=== PATIENT | female | born 1985 | race Hispanic/Latino ===

== ENCOUNTER 2018-11-02 08:52 | Day surgery (SDC) | payer OTHER ==
[~2018-11-02] VITALS: Ht 157.5 cm; Wt 72.6 kg
[~2018-11-02 08:52] MED LIST: SODIUM CHLORIDE 0.9% 1000ML 1,000 ML IV ONE; VITAMIN B12 PO
[2018-11-02 11:06] VITALS: BP 113/66
[2018-11-02] MEDS ORDERED: VITAMIN C (11:17)
[2018-11-02] MEDS ORDERED: PROPOFOL 10 MG/ML 20ML VIAL IV ONE (11:36)
[2018-11-02 11:40] VITALS: BP 102/63
[2018-11-02 11:45] VITALS: BP 113/63
[2018-11-02 11:50] VITALS: BP 110/68
[2018-11-02 11:55] VITALS: BP 116/78
[2018-11-02 12:00] VITALS: BP 114/74
== END 2018-11-02 12:10 | disposition home or self-care (01) ==
LOC: ENDO 08:52 → DAH 08:52 → ENDO 12:10
PROVIDERS: ATTEND Internal Medicine
DX: R10.13 Epigastric pain (principal); K29.70 Gastritis, unspecified, without bleeding; B96.81 Helicobacter pylori [H. pylori] as the cause of diseases classified elsewhere; K22.8 Other specified diseases of esophagus; N20.0 Calculus of kidney; R19.7 Diarrhea, unspecified; K76.0 Fatty (change of) liver, not elsewhere classified; G43.909 Migraine, unspecified, not intractable, without status migrainosus; Z80.0 Family history of malignant neoplasm of digestive organs
CPT/HCPCS: 43239; A4215; A4221; A4222; A4223; A4606; A4663; J2704; J7030

== ENCOUNTER 2019-04-01 15:58 | Emergency (ER) | payer OTHER ==
[~2019-04-01 15:58] MED LIST changes: -SODIUM CHLORIDE 0.9% 1000ML 1,000 ML IV ONE; +VITAMIN C
[2019-04-01] MEDS ORDERED: KETOROLAC TROMETHAMINE 60 MG/2 ML VIAL ONE (16:26)
[2019-04-01] MEDS ORDERED: DIAZEPAM 5 MG TABLET ONE (16:27)
== END 2019-04-01 17:03 | disposition home or self-care (01) ==
LOC: EDH 15:58
DX: S16.1XXA Strain of muscle, fascia and tendon at neck level, initial encounter (principal); G44.209 Tension-type headache, unspecified, not intractable; Z98.890 Other specified postprocedural states; V59.9XXA Occupant (driver) (passenger) of pick-up truck or van injured in unspecified traffic accident, initial encounter; Y93.89 Activity, other specified; Y92.488 Other paved roadways as the place of occurrence of the external cause; Y99.8 Other external cause status
CPT/HCPCS: 96372; 99283; J1885

== ENCOUNTER → 2019-04-04 | Outpatient (CLI) | payer OTHER | END | disposition home or self-care (01) | LOC: RAH 15:49 | PROVIDERS: ATTEND Internal Medicine Critical Care Medicine | DX: M54.5 Low back pain (principal) | CPT/HCPCS: 72040; 72100 ==

== ENCOUNTER → 2019-06-29 | Outpatient (CLI) | payer OTHER | END | disposition home or self-care (01) | LOC: RAH 10:09 | PROVIDERS: ATTEND Obstetrics & Gynecology | DX: N60.02 Solitary cyst of left breast (principal); N60.01 Solitary cyst of right breast; N63.12 Unspecified lump in the right breast, upper inner quadrant | CPT/HCPCS: 76641 ==

== ENCOUNTER → 2019-08-23 | Outpatient (CLI) | payer OTHER | END | disposition home or self-care (01) | LOC: LAB 09:35 | PROVIDERS: ATTEND Internal Medicine Critical Care Medicine | DX: U07.1 COVID-19 (principal) | CPT/HCPCS: 36415; U0003 ==

== ENCOUNTER 2019-11-06 22:37 | Observation (INO) | payer OTHER ==
[~2019-11-06] VITALS: Ht 157.5 cm; Wt 80.8 kg
[2019-11-06] MEDS ORDERED: ONDANSETRON HCL 4 MG/2 ML VIAL ONE (22:54)
[2019-11-06 23:10] LABS: BASOPHILS % (AUTO) 0.5 % (0.0-5.0); EOSINOPHILS % (AUTO) 0.5 % (0.0-8.0); HEMATOCRIT 37.7 % (36-48); LYMPHOCYTES % (AUTO) 14.4 % (21.0-51.0); MEAN CORPUSCULAR HEMOGLOBIN 27.2 pg (27.0-33.0); MEAN CORPUSCULAR HGB CONC 33.4 g/dL (32.0-36.0); MEAN CORPUSCULAR VOLUME 81.4 fL (79-99); MONOCYTES % (AUTO) 4.3 % (3.0-13.0); NEUTROPHILS % (AUTO) 79.9 % (40.0-77.0); PLATELET COUNT (AUTO) 402 K/uL (130-400); RED BLOOD CELL COUNT(AUTO) 4.63 MIL/uL (4.00-5.50); RED CELL DISTRIBUTION WIDTH 13.6 % (11.0-15.5); WHITE BLOOD COUNT (AUTO) 15.5 K/uL (4.8-10.8)
[2019-11-06 23:15] LABS: APPEARANCE,URINE Clear (CLEAR); BILIRUBIN,URINE Negative (NEGATIVE); COLOR,URINE Yellow (YELLOW); GLUCOSE, URINE (UA) Negative (NEGATIVE); KETONES,URINE Negative (NEGATIVE); LEUKOCYTE ESTERASE ,URINE Trace (NEGATIVE); NITRATE,URINE Negative (NEGATIVE); OCCULT BLOOD,URINE Moderate (NEGATIVE); PH,URINE 6.5 (5.0-8.0); PROTEIN,URINE Trace mg/dL (NEGATIVE)
[2019-11-06] MEDS ORDERED: MORPHINE SULFATE 4 MG/1ML SYG ONE (23:17)
[2019-11-06] MEDS ORDERED: DIATR MEGLU/DIATRIZOATE SODIUM 30 ML BOTTLE ONE (23:20)
[2019-11-06 23:21] LABS: HCG,QUAL RESULT NEGATIVE (NEGATIVE)
[2019-11-06 23:26] LABS: BACTERIA,URINE Few /HPF (None Seen); WBC,URINE 0-1 /HPF (0-1)
[2019-11-06 23:27] LABS: BILIRUBIN,TOTAL 0.5 mg/dL (0.2-1.0); CREATININE 1.1 mg/dL (0.5-1.5); TOTAL PROTEIN, SERUM 8.3 g/dL (6.0-8.3)
[2019-11-06 23:32] LABS: POTASSIUM 2.9 mmol/L (3.5-5.1)
[2019-11-07] MEDS ORDERED: IOHEXOL-350 75 ML VIAL IV ONE (01:56)
[2019-11-07] MEDS ORDERED: POTASSIUM BICARB/CIT AC 25 MEQ TABLET.EFF ONE (03:02)
[2019-11-07] MEDS ORDERED: KETOROLAC TROMETHAMINE 30MG/ML ONE (03:17)
[2019-11-07] MEDS ORDERED: ZOLPIDEM TARTRATE 5 MG TAB PO PRN (04:00)
[2019-11-07] MEDS ORDERED: MORPHINE SULFATE 4 MG/1ML SYG IV PRN (04:00)
[2019-11-07] MEDS: SODIUM CHLORIDE 0.9% 1000ML 1,000 ML IV SCH ×2 (04:00→17:54)
[2019-11-07] MEDS ORDERED: ONDANSETRON HCL 4 MG/2 ML VIAL IV PRN (04:00)
[2019-11-07] MEDS ORDERED: LACTULOSE 20 GM/30 ML UDCUP PO PRN (04:00)
[2019-11-07] MEDS ORDERED: ACETAMINOPHEN 325 MG TAB PO PRN (04:00)
--- NOTE | 2019-11-07 04:38 | NUR ---
ER REPORT NATHALIE FROM er gave report,pt had a K+ 2.9.she had given her kcl 25 meq in er.
[2019-11-07] MEDS ORDERED: POTASSIUM CHLORIDE 10MEQ/100ML 100 ML IV ONE (04:42)
[2019-11-07 05:00] VITALS: BP 138/65
[2019-11-07] MEDS ORDERED: DICY20TA11 PO (05:18)
[2019-11-07] MEDS ORDERED: BIOT5000 PO (05:18)
[2019-11-07] MEDS: CEFTRIAXONE SODIUM 1 GM IV SCH (05:30)
--- NOTE | 2019-11-07 07:57 | NUR ---
Dr. Fairbanks Spoke to MD via telephone regarding consult
[2019-11-07 08:06] VITALS: BP 117/78
[2019-11-07] MEDS: LIDOCAINE HCL-MPF 1% 2ML VIAL IV PRN ×2 (08:52→19:49)
[2019-11-07] MEDS: POTASSIUM CHLORIDE 10MEQ/100ML 100 ML IV PRN ×2 (08:56→19:49)
[2019-11-07] MEDS ORDERED: FAMOTIDINE/PF 20 MG/2 ML VIAL IV SCH (09:00)
[2019-11-07] MEDS ORDERED: FLU VACC QS2020-21(6MOS UP)/PF 60 MCG/0.5 ML ML IM ONE (09:00)
--- NOTE | 2019-11-07 09:05 | NUR ---
PAGED HOSPITALIST PATIENT REPORTS PAIN 7/10 ABDOMINAL PAIN. PATIENT STATES MORPHINE PRN DOES NOT WORK TO CONTROL PAIN. PAGED MD TO REPORTS PAIN REPORT AND MG LEVEL 1.8
[2019-11-07] MEDS: KETOROLAC TROMETHAMINE 15MG/ML IV PRN ×2 (09:41→19:49)
[2019-11-07] MEDS: MAGNESIUM 2GM PREMIX 50ML 50 ML IV SCH (09:45)
[2019-11-07] MEDS: PANTOPRAZOLE 40 MG/VIAL IVP SCH (10:31)
[2019-11-07 11:19] VITALS: BP 123/69
--- NOTE | 2019-11-07 12:28 | NUR ---
DCP CM met with pt discussed dc plans. Pt is independent prior to admission, lives at home with spouse and children 15, 13, 10, 8, 6 y/o. 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 Denies any other equipments/services. Feels safe to go back home, still drives and works, spouse able to assist with transportation and needs as necessary. DC plan to home once stable. CM to continue to follow up. Addendum: 11/07/19 at 1231 by ONEAL ROBB LVN CM Amended: Links added.
--- NOTE | 2019-11-07 16:08 | NUR ---
RD NOTE PT WAS SEEN 11/07/19. DX OF CHRONIC ABDOMINAL PAIN PT REPORTED NO NAUSEA/VOMITING AND NO RECENT UNINTENTIONAL WT LOSS. PT REPORTED HAVING GESTATIONAL DM HOWEVER IT HAS SINCE RESOLVED. PT TAKES VITAMIN C, VITAMIN B12 AND BIOTIN AT HOME. PT IS CURRENTLY NPO AWAITING FURTHER EVALUATION FROM GI. ADVANCE DIET PER GI RECOMMENDATIONS UPON EVALUATION. RD WILL CONTINUE TO MONITOR PO STATUS AND LAB VALUES. PT'S BMI IS OF 32.6 LAST BOWEL MOVEMENT WAS 11/07/19, RECENT LAB VALUES ARE: K 3.4 (L), CL 98 (L), TOT CA 7.8 (L), LIPASE 50 (L), NA 132 (L), ALB 4.0. Addendum: 11/07/19 at [address] Amended: Links added.
[2019-11-07 16:42] VITALS: BP 132/61
--- NOTE | 2019-11-07 19:00 | NUR ---
RE FLU VACCINE Pt states she wants her flus vaccine given when she's ready to go home.
[2019-11-07] MEDS: COLCHICINE 0.6 MG TABLET PO SCH (19:48)
[2019-11-07 20:00] VITALS: BP 125/78
[2019-11-07] MEDS ORDERED: HYDROMORPHONE HCL 0.5 MG/0.5 ML ML ONE (21:44)
[2019-11-07] MEDS ORDERED: HYDROMORPHONE HCL 0.5 MG/0.5 ML ML IVP SCH (22:00)
--- NOTE | 2019-11-07 22:32 | NUR ---
MIGRAINE Pt c/o of severe migraine headache and states she takes migraine medicine at home.She states Toradol and Morphine does not help with her migraine.Paged [facility]fon[facility] [employer] and obtained order for Dilaudid one time dose.Pt took a shower and medicated with Dilaudid for headache.
--- NOTE | 2019-11-07 23:15 | NUR ---
MED EFFECT Pt calm,awake in bed.Verbalized relief of pain.
[2019-11-07 23:24] VITALS: BP 133/80
[2019-11-08] VITALS (20 sets, daily range): BP systolic 107–132; BP diastolic 55–87
[2019-11-08] MEDS: SODIUM CHLORIDE 0.9% 1000ML 1,000 ML IV SCH ×3 (00:24→20:00)
--- NOTE | 2019-11-08 01:35 | NUR ---
NPO Pts npo for egd this am.
[2019-11-08] MEDS: CEFTRIAXONE SODIUM 1 GM IV SCH (03:59)
[2019-11-08] MEDS: KETOROLAC TROMETHAMINE 15MG/ML IV PRN ×2 (04:05→14:55)
[2019-11-08 06:03] LABS: BASOPHILS % (AUTO) 0.8 % (0.0-5.0); EOSINOPHILS % (AUTO) 4.7 % (0.0-8.0); HEMATOCRIT 33.9 % (36-48); LYMPHOCYTES % (AUTO) 32.9 % (21.0-51.0); MEAN CORPUSCULAR HEMOGLOBIN 26.9 pg (27.0-33.0); MEAN CORPUSCULAR HGB CONC 32.4 g/dL (32.0-36.0); MEAN CORPUSCULAR VOLUME 82.9 fL (79-99); MONOCYTES % (AUTO) 6.7 % (3.0-13.0); NEUTROPHILS % (AUTO) 54.7 % (40.0-77.0); PLATELET COUNT (AUTO) 338 K/uL (130-400); RED BLOOD CELL COUNT(AUTO) 4.09 MIL/uL (4.00-5.50); RED CELL DISTRIBUTION WIDTH 13.5 % (11.0-15.5); WHITE BLOOD COUNT (AUTO) 6.6 K/uL (4.8-10.8)
[2019-11-08 06:09] LABS: INR 0.97 (0.85-1.15); PARTIAL THROMBOPLASTIN TIME 26.5 SEC (26.3-35.5); PROTHROMBIN TIME 10.5 SEC (9.6-11.6)
[2019-11-08 06:13] LABS: AMYLASE 17 U/L (25-115); CARBON DIOXIDE 26 mmol/L (21-32); CHLORIDE 107 mmol/L (101-111); CREATININE 0.9 mg/dL (0.5-1.5); GLOMERULAR FILTR. RATE CALC 76 mL/min (>60); GLUCOSE,RANDOM 85 mg/dL (70-105); POTASSIUM 3.7 mmol/L (3.5-5.1); SODIUM SERUM 138 mmol/L (136-145); UREA NITROGEN, BLOOD 7 mg/dL (7-18)
[2019-11-08 06:22] LABS: LIPASE < 50 U/L (114-286)
[2019-11-08] MEDS: MAGNESIUM 2GM PREMIX 50ML 50 ML IV SCH (06:28)
[2019-11-08 07:07] LABS: ERYTHROCYTE SEDIMENTATION RATE 20 MM/HR (0-20)
[2019-11-08] MEDS: COLCHICINE 0.6 MG TABLET PO SCH ×3 (09:00→19:50)
[2019-11-08] MEDS: PANTOPRAZOLE 40 MG/VIAL IVP SCH (09:11)
[2019-11-08] MEDS ORDERED: MIDAZOLAM HCL 1 MG/ML 2ML VIAL ONE (10:49)
[2019-11-08] MEDS ORDERED: PROPOFOL 10 MG/ML 20ML VIAL IV ONE (10:49)
[2019-11-08] MEDS ORDERED: COLC0.6T73 PO (13:38)
[2019-11-08] MEDS ORDERED: PANT40TA55 PO (13:38)
--- NOTE | 2019-11-08 14:45 | NUR ---
PATIENT SYMPTOMS PATIENT REPORTS ABDOMINAL PAIN 7/10 AND NAUSEA THAT STARTED NOW. PATIENT REPORTS EATING LUNCH AND SPORTS DRINKS. PATIENT STATES THAT SHE FEELS "WARM AND NOT GOOD AT ALL." INFORMED DR. SHARMA OF PATIENT SYMPTOMS AND MD OKAYED TO HOLD DISCHARGE UNTIL SYMPTOM RELIEF.
[2019-11-08] MEDS ORDERED: SUMA25TA9 PO (15:29)
[2019-11-08] MEDS: SUMATRIPTAN SUCCINATE 25 MG TABLET PO PRN (16:37)
--- NOTE | 2019-11-08 20:00 | NUR ---
RECEIVED Pt resting in bed,states she's not ready to leave yet becaused she felt nauseated after she ate chicken from outside,Denies pain this time.
--- NOTE | 2019-11-08 23:22 | NUR ---
AWAKE Pt awake in bed,calm,states she's not ready to leave yet.
[2019-11-09 03:30] VITALS: BP_SYST 103; BP_SYST 124; BP_DIAS 50; BP_DIAS 60
[2019-11-09] MEDS: CEFTRIAXONE SODIUM 1 GM IV SCH (04:06)
[2019-11-09] MEDS: SUMATRIPTAN SUCCINATE 25 MG TABLET PO PRN (04:11)
[2019-11-09] MEDS: SODIUM CHLORIDE 0.9% 1000ML 1,000 ML IV SCH (05:49)
[2019-11-09 08:04] VITALS: BP 126/71
[2019-11-09] MEDS ORDERED: FLU VACC QS2020-21(6MOS UP)/PF 60 MCG/0.5 ML ML IM ONE (09:00)
[2019-11-09] MEDS: PANTOPRAZOLE 40 MG/VIAL IVP SCH (09:53)
[2019-11-09] MEDS: COLCHICINE 0.6 MG TABLET PO SCH (09:53)
== END 2019-11-09 11:00 | disposition home or self-care (01) ==
LOC: EDH 22:37 → EDHIP 11-07 03:47 → 3AH 11-07 04:52
PROVIDERS: ADMIT Internal Medicine; ATTEND Internal Medicine
DX: R10.13 Epigastric pain (principal); E87.6 Hypokalemia; R11.2 Nausea with vomiting, unspecified; K29.70 Gastritis, unspecified, without bleeding; G89.29 Other chronic pain; N39.0 Urinary tract infection, site not specified; D72.829 Elevated white blood cell count, unspecified; A04.8 Other specified bacterial intestinal infections; M54.9 Dorsalgia, unspecified; Z23 Encounter for immunization; Z98.51 Tubal ligation status; Z79.899 Other long term (current) drug therapy; Z91.048 Other nonmedicinal substance allergy status
CPT/HCPCS: 36415 ×3; 43239; 74177; 80048; 80053; 81001; 81025; 82150; 83690 ×2; 83735 ×2; 84132; 84145 ×2; 85025 ×2; 85384 ×2; 85610; 85651 ×2; 85730; 86140 ×2; 86677; 87088; 90471; 93005; 96361 ×2; 96365; 96366; 96367; 96375 ×2; 96376 ×3; 99285; A4606; A4620; A4657; C9113 ×3; G0378 ×22; J0696 ×2; J1170; J1885 ×5; J2250; J2270 ×2; J2405 ×2; J2704; J3475 ×2; J3490 ×2; J7030 ×2; Q2035; Q9963; Q9967

== ENCOUNTER → 2019-11-24 | Outpatient (CLI) | payer OTHER ==
[~2019-11-24] MED LIST changes: +BIOT5000 PO; +COLC0.6T70 PO; +DICY20TA11 PO; +PANT40TA55 PO; +SUMA25TA9 PO; -VITAMIN B12 PO
== END | disposition home or self-care (01) ==
LOC: LAB 09:44
PROVIDERS: ATTEND Internal Medicine Gastroenterology
DX: R10.9 Unspecified abdominal pain (principal)
CPT/HCPCS: 36415; 82784; 83516; 86038; 86215; 86235

== ENCOUNTER 2019-12-15 20:53 | Inpatient (IN) | payer OTHER ==
[~2019-12-15] VITALS: Ht 157.5 cm; Wt 78.9 kg
[~2019-12-15 20:53] MED LIST changes: -COLC0.6T70 PO; +COLC0.6T73 PO
[2019-12-15] MEDS ORDERED: SODIUM CHLORIDE 0.9% 500ML 500 ML IV ONE (21:22)
[2019-12-15] MEDS ORDERED: SODIUM CHLORIDE 0.9% 1000ML 2,000 ML IV ONE (21:22)
[2019-12-15 21:31] LABS: BASOPHILS % (AUTO) 0.4 % (0.0-5.0); EOSINOPHILS % (AUTO) 1.5 % (0.0-8.0); HEMATOCRIT 37.2 % (36-48); LYMPHOCYTES % (AUTO) 14.5 % (21.0-51.0); MEAN CORPUSCULAR HEMOGLOBIN 26.8 pg (27.0-33.0); MEAN CORPUSCULAR HGB CONC 33.3 g/dL (32.0-36.0); MEAN CORPUSCULAR VOLUME 80.5 fL (79-99); MONOCYTES % (AUTO) 4.9 % (3.0-13.0); NEUTROPHILS % (AUTO) 78.4 % (40.0-77.0); PLATELET COUNT (AUTO) 371 K/uL (130-400); RED BLOOD CELL COUNT(AUTO) 4.62 MIL/uL (4.00-5.50); WHITE BLOOD COUNT (AUTO) 14.4 K/uL (4.8-10.8)
[2019-12-15] MEDS ORDERED: ACETAMINOPHEN 325 MG TAB ONE (21:32)
[2019-12-15 21:45] LABS: APPEARANCE,URINE Clear (CLEAR); BILIRUBIN,URINE Negative (NEGATIVE); COLOR,URINE Yellow (YELLOW); GLUCOSE, URINE (UA) Negative (NEGATIVE); KETONES,URINE Negative (NEGATIVE); LEUKOCYTE ESTERASE ,URINE Negative (NEGATIVE); NITRATE,URINE Negative (NEGATIVE); OCCULT BLOOD,URINE Small (NEGATIVE); PROTEIN,URINE Negative (NEGATIVE); UROBILINOGEN,URINE 0.2 mg/dL (0.2-1.0)
[2019-12-15 21:47] LABS: HCG,QUAL RESULT NEGATIVE (NEGATIVE)
[2019-12-15 21:51] LABS: CARBON DIOXIDE 23 mmol/L (21-32); CHLORIDE 100 mmol/L (101-111); GLOMERULAR FILTR. RATE CALC 67 mL/min (>60); GLUCOSE,RANDOM 109 mg/dL (70-105); POTASSIUM 3.2 mmol/L (3.5-5.1); SODIUM SERUM 135 mmol/L (136-145); UREA NITROGEN, BLOOD 8 mg/dL (7-18)
[2019-12-15 21:54] LABS: BACTERIA,URINE Few /HPF (None Seen); MUCUS,URINE Few LPF (None Seen); SQUAMOUS EPITHELIAL CELL,UR Moderate /HPF (0-2); WBC,URINE 0-1 /HPF (0-1)
[2019-12-15 21:55] LABS: ALANINE AMINOTRANSFERASE 65 U/L (12-78); ALBUMIN 3.8 g/dL (3.5-5.0); ASPARTATE AMINOTRANSFERASE 43 U/L (10-37); BILIRUBIN,TOTAL 0.4 mg/dL (0.2-1.0); TOTAL PROTEIN, SERUM 8.2 g/dL (6.0-8.3)
[2019-12-15 21:58] LABS: LIPASE < 50 U/L (114-286)
[2019-12-15 22:00] LABS: RAPID GROUP A STREP NEGATIVE (NEGATIVE)
[2019-12-15 22:13] LABS: AMPHET/METH SCREEN,URINE NEGATIVE (NEGATIVE); BARBITURATE SCREEN, URINE NEGATIVE (NEGATIVE); BENZODIAZEPINES SCREEN,URINE NEGATIVE (NEGATIVE); CANNABINOID SCREEN,URINE NEGATIVE (NEGATIVE); COCAINE SCREEN,URINE NEGATIVE (NEGATIVE); OPIATE SCREEN,URINE NEGATIVE (NEGATIVE); PHENCYCLIDINE SCREEN,URINE NEGATIVE (NEGATIVE)
[2019-12-15] MEDS ORDERED: KETOROLAC TROMETHAMINE 30MG/ML ONE (22:37)
[2019-12-15] MEDS ORDERED: POTASSIUM BICARB/CIT AC 25 MEQ TABLET.EFF ONE (22:37)
[2019-12-15] MEDS ORDERED: ONDANSETRON HCL 4 MG/2 ML VIAL ONE (23:44)
[2019-12-15] MEDS ORDERED: MORPHINE SULFATE 4 MG/1ML SYG ONE (23:44)
[2019-12-16] MEDS ORDERED: LACTULOSE 20 GM/30 ML UDCUP PO PRN (05:30)
[2019-12-16] MEDS ORDERED: ACETAMINOPHEN 325 MG TAB PO PRN ×2 (05:30)
[2019-12-16] MEDS: CEFTRIAXONE SODIUM 1 GM IV SCH (05:30)
[2019-12-16] MEDS ORDERED: CEFTRIAXONE SODIUM 1 GM ONE (05:39)
[2019-12-16] MEDS ORDERED: METRONIDAZOLE 500MG/100ML BAG 100 ML ONE (05:39)
[2019-12-16] MEDS ORDERED: SODIUM CHLORIDE 0.9% 1000ML 1,000 ML IV SCH (05:45)
[2019-12-16] MEDS ORDERED: POTASSIUM CHLORIDE 10MEQ/100ML 100 ML IV PRN (05:45)
[2019-12-16] MEDS ORDERED: POTASSIUM CHLORIDE 20 MEQ ERTAB PO PRN (05:45)
[2019-12-16] MEDS ORDERED: POTASSIUM CHLORIDE 10% ELIXIR 20 MEQ/15 ML UDCUP PO PRN (05:45)
[2019-12-16] MEDS ORDERED: LIDOCAINE HCL-MPF 1% 2ML VIAL IV PRN (05:45)
[2019-12-16 06:05] LABS: BASOPHILS % (AUTO) 0.5 % (0.0-5.0); EOSINOPHILS % (AUTO) 2.2 % (0.0-8.0); HEMATOCRIT 34.9 % (36-48); LYMPHOCYTES % (AUTO) 24.1 % (21.0-51.0); MEAN CORPUSCULAR HEMOGLOBIN 26.6 pg (27.0-33.0); MEAN CORPUSCULAR HGB CONC 32.1 g/dL (32.0-36.0); MEAN CORPUSCULAR VOLUME 82.9 fL (79-99); MONOCYTES % (AUTO) 6.3 % (3.0-13.0); NEUTROPHILS % (AUTO) 66.6 % (40.0-77.0); PLATELET COUNT (AUTO) 310 K/uL (130-400); RED BLOOD CELL COUNT(AUTO) 4.21 MIL/uL (4.00-5.50); RED CELL DISTRIBUTION WIDTH 14.3 % (11.0-15.5); WHITE BLOOD COUNT (AUTO) 11.1 K/uL (4.8-10.8)
[2019-12-16 06:19] LABS: ALBUMIN 3.2 g/dL (3.5-5.0); BILIRUBIN,TOTAL 0.6 mg/dL (0.2-1.0); CREATININE 0.9 mg/dL (0.5-1.5); POTASSIUM 3.6 mmol/L (3.5-5.1); TOTAL PROTEIN, SERUM 6.8 g/dL (6.0-8.3)
[2019-12-16] MEDS ORDERED: MORPHINE SULFATE 4 MG/1ML SYG ONE (07:14)
[2019-12-16 07:56] VITALS: BP 123/83
[2019-12-16] MEDS: FAMOTIDINE/PF 20 MG/2 ML VIAL IV SCH ×2 (08:50→20:49)
[2019-12-16] MEDS: COLCHICINE 0.6 MG TABLET PO SCH ×2 (09:00→20:50)
[2019-12-16] MEDS: MORPHINE SULFATE 2 MG/ML 1ML SYG IV PRN (10:06)
[2019-12-16 11:13] VITALS: BP 132/81
[2019-12-16] MEDS: HYDROCODONE/ACETAMINOPHEN 5/325 MG TAB PO PRN ×2 (11:30→19:09)
[2019-12-16] MEDS: METRONIDAZOLE 500MG/100ML BAG 100 ML IV SCH ×2 (13:04→20:50)
[2019-12-16 16:40] VITALS: BP 123/82
[2019-12-16] MEDS ORDERED: DICY20 PO (16:44)
[2019-12-16] MEDS ORDERED: GABA300S PO (16:44)
[2019-12-16] MEDS ORDERED: SUMA25TA9 PO (16:44)
--- NOTE | 2019-12-16 17:00 | NUR ---
DR. ARGUELLES CALLED AND NEW ORDERS GIVEN FOR COLONOSCOPY. PATIENT SIGNED CONSENT FOR CT W/O CONTRAST OF ABDOMEN AND PELVIS AND ALSO HAD HER SIGN A CONSENT FOR COLONOSCOPY IN A.M. PATIENT WAS TAKEN TO RADIOLOGY FOR CT AFTER CONSENT OBTAINED FOR TEST.
--- NOTE | 2019-12-16 17:20 | NUR ---
COVID TEST: NASAL SWAB DONE FOR HUFF ANTIGEN AND SEND TO LAB.
[2019-12-16] MEDS ORDERED: IOHEXOL-350 75 ML VIAL IV ONE (17:30)
[2019-12-16 18:29] VITALS: BP 137/87
[2019-12-16] MEDS ORDERED: PEG 3350/NA SULF,BICARB,CL/KCL 4000 ML SOLN PO SCH (18:30)
--- NOTE | 2019-12-16 18:35 | NUR ---
hygeine: took shower.
--- NOTE | 2019-12-16 19:04 | NUR ---
PREP FOR PROCEDURE: DRINKING VALERIE.
[2019-12-16 19:06] LABS: BASOPHILS % (AUTO) 0.8 % (0.0-5.0); EOSINOPHILS % (AUTO) 3.5 % (0.0-8.0); HEMATOCRIT 37.3 % (36-48); LYMPHOCYTES % (AUTO) 31.5 % (21.0-51.0); MEAN CORPUSCULAR HEMOGLOBIN 26.8 pg (27.0-33.0); MEAN CORPUSCULAR HGB CONC 32.4 g/dL (32.0-36.0); MEAN CORPUSCULAR VOLUME 82.7 fL (79-99); MONOCYTES % (AUTO) 5.7 % (3.0-13.0); NEUTROPHILS % (AUTO) 58.4 % (40.0-77.0); PLATELET COUNT (AUTO) 387 K/uL (130-400); RED BLOOD CELL COUNT(AUTO) 4.51 MIL/uL (4.00-5.50); RED CELL DISTRIBUTION WIDTH 14.4 % (11.0-15.5); WHITE BLOOD COUNT (AUTO) 9.8 K/uL (4.8-10.8)
[2019-12-16 19:17] LABS: POTASSIUM 3.4 mmol/L (3.5-5.1)
--- NOTE | 2019-12-16 19:30 | NUR ---
BEDSIDE REPORT GIVEN TO Belia RAMOS RN AND PATIENT CARE TRANSFERED AT THIS TIME.
[2019-12-16 20:00] LABS: INR 0.91 (0.85-1.15); PROTHROMBIN TIME 9.9 SEC (9.6-11.6)
[2019-12-16] MEDS: SODIUM CHLORIDE 0.9% 1000ML 1,000 ML IV SCH (20:49)
[2019-12-16 23:07] VITALS: BP 145/92
[2019-12-17] VITALS (20 sets, daily range): BP systolic 115–133; BP diastolic 47–88
--- NOTE | 2019-12-17 00:30 | NUR ---
PT. REPORTING CLEAR STOOLS; GO-LYTELY WELL TOLERATED, NO N/V. Addendum: 12/17/19 at 0414 by IRWIN KRAUS RN RN Amended: Links added.
[2019-12-17] MEDS: HYDROCODONE/ACETAMINOPHEN 5/325 MG TAB PO PRN ×2 (01:53→20:34)
[2019-12-17] MEDS: METRONIDAZOLE 500MG/100ML BAG 100 ML IV SCH ×3 (04:31→20:32)
[2019-12-17] MEDS: SODIUM CHLORIDE 0.9% 1000ML 1,000 ML IV SCH (05:00)
[2019-12-17 05:19] LABS: BASOPHILS % (AUTO) 0.7 % (0.0-5.0); EOSINOPHILS % (AUTO) 4.5 % (0.0-8.0); HEMATOCRIT 32.7 % (36-48); LYMPHOCYTES % (AUTO) 31.7 % (21.0-51.0); MEAN CORPUSCULAR HEMOGLOBIN 26.6 pg (27.0-33.0); MEAN CORPUSCULAR HGB CONC 32.4 g/dL (32.0-36.0); MEAN CORPUSCULAR VOLUME 82.2 fL (79-99); MONOCYTES % (AUTO) 7.2 % (3.0-13.0); NEUTROPHILS % (AUTO) 55.6 % (40.0-77.0); PLATELET COUNT (AUTO) 313 K/uL (130-400); RED BLOOD CELL COUNT(AUTO) 3.98 MIL/uL (4.00-5.50); RED CELL DISTRIBUTION WIDTH 14.3 % (11.0-15.5); WHITE BLOOD COUNT (AUTO) 6.9 K/uL (4.8-10.8)
[2019-12-17 05:31] LABS: BILIRUBIN,TOTAL 0.3 mg/dL (0.2-1.0); CREATININE 0.8 mg/dL (0.5-1.5); POTASSIUM 3.7 mmol/L (3.5-5.1); TOTAL PROTEIN, SERUM 6.7 g/dL (6.0-8.3)
[2019-12-17] MEDS: CEFTRIAXONE SODIUM 1 GM IV SCH (05:33)
[2019-12-17] MEDS: FAMOTIDINE/PF 20 MG/2 ML VIAL IV SCH (08:55)
[2019-12-17] MEDS: MORPHINE SULFATE 2 MG/ML 1ML SYG IV PRN (09:02)
[2019-12-17] MEDS ORDERED: PROPOFOL 10 MG/ML 20ML VIAL IV ONE (10:23)
[2019-12-17] MEDS: COLCHICINE 0.6 MG TABLET PO SCH (11:52)
[2019-12-17] MEDS ORDERED: HYDROCODONE/ACETAMINOPHEN 5/325 MG TAB PO PRN (12:00)
[2019-12-17] MEDS: ONDANSETRON HCL 4 MG/2 ML VIAL IV PRN (14:22)
[2019-12-17] MEDS ORDERED: LEVOFLOXACIN 500 MG TABLET PO SCH (16:30)
--- NOTE | 2019-12-17 16:38 | NUR ---
DCP CM met with pt in room discussed dc plans. Pt is independent prior to admission, lives at home with spouse and 5 children(18,13,8,6 y/o). Denies any equipments/services. Feels safe to go back home, still drives and work, spouse able to assist with transportation and needs as necessary. DC plan to home once stable. CM to continue to follow up. Addendum: 12/17/19 at 1640 by ONEAL ROBB LVN CM Amended: Links added.
[2019-12-17] MEDS ORDERED: SODIUM CHLORIDE 0.9% 1000ML 1,000 ML IV SCH (17:00)
[2019-12-17] MEDS ORDERED: KETOROLAC TROMETHAMINE 15MG/ML IV PRN (17:00)
--- NOTE | 2019-12-17 20:00 | NUR ---
IV TO LAC TENDER AND SLIGHTLY RED, DISCONTINUED. IV CATHETER INTACT, SITE REMAIN SLIGHTLY REDDISH.
--- NOTE | 2019-12-17 20:15 | NUR ---
IV TO LFA STARTED BY Randy PRITCHETT RN, SITE WNL.
[2019-12-17] MEDS: PANTOPRAZOLE SODIUM 40 MG TABLET.DR PO SCH (20:33)
[2019-12-18 03:12] VITALS: BP 115/67
[2019-12-18] MEDS: METRONIDAZOLE 500MG/100ML BAG 100 ML IV SCH ×2 (04:30→12:54)
[2019-12-18 05:20] LABS: BASOPHILS % (AUTO) 0.8 % (0.0-5.0); EOSINOPHILS % (AUTO) 3.7 % (0.0-8.0); HEMATOCRIT 33.2 % (36-48); LYMPHOCYTES % (AUTO) 34.5 % (21.0-51.0); MEAN CORPUSCULAR HEMOGLOBIN 26.5 pg (27.0-33.0); MEAN CORPUSCULAR HGB CONC 32.2 g/dL (32.0-36.0); MEAN CORPUSCULAR VOLUME 82.2 fL (79-99); MONOCYTES % (AUTO) 7.6 % (3.0-13.0); NEUTROPHILS % (AUTO) 53.1 % (40.0-77.0); PLATELET COUNT (AUTO) 338 K/uL (130-400); RED BLOOD CELL COUNT(AUTO) 4.04 MIL/uL (4.00-5.50); RED CELL DISTRIBUTION WIDTH 14.2 % (11.0-15.5); WHITE BLOOD COUNT (AUTO) 7.9 K/uL (4.8-10.8)
[2019-12-18] MEDS: CEFTRIAXONE SODIUM 1 GM IV SCH (05:31)
[2019-12-18 05:33] LABS: ALBUMIN 3.2 g/dL (3.5-5.0); BILIRUBIN,TOTAL 0.3 mg/dL (0.2-1.0); CREATININE 0.9 mg/dL (0.5-1.5); POTASSIUM 3.7 mmol/L (3.5-5.1)
[2019-12-18 07:23] VITALS: BP 129/78
--- NOTE | 2019-12-18 07:30 | NUR ---
PATIENT WAS REFUSING PEPCID AND ZOFRAN AND INDICATED FEELING NAUSEATED. INSTRUCTED PATIENT ON NEED TO HAVE MEDS GIVEN TO RELIEVE NAUSEA. PATIENT WENT TO BATHROOM TO VOID AND STARTED TO THROW UP. TOOK A ZIP WAS WATER AND THREW UP AGAIN AND CALLED AND INDICATED WANTING ZOFRAN AND PEPCID. MEDICATIONS GIVEN AND PATIENT INDICATED LATER THAT NAUSEA HAD RESOLVED. Addendum: 12/18/19 at 1021 by ZAHEER WHITLOCK RN WRONG PT.
--- NOTE | 2019-12-18 07:40 | NUR ---
PATIENT ASSESSED AND STATES FEELING A LITTLE NAUSEATED. INFORMED PATIENT OF PROTONIX AND CAN HAVE ZOFRAN FOR NAUSEA AND AGREED TO HAVE MEDS ADMINISTERED. PATIENT WAS MEDICATED AND SENSATION TO THROW UP WENT AWAY PER PATIENT.
[2019-12-18] MEDS: ONDANSETRON HCL 4 MG/2 ML VIAL IV PRN (08:15)
[2019-12-18] MEDS: PANTOPRAZOLE SODIUM 40 MG TABLET.DR PO SCH (08:15)
--- NOTE | 2019-12-18 08:30 | NUR ---
DR. BOWLES ROUNDED AND ORDER GIVEN FOR SOFT DIET FOR THIS A.M. AND POSSIBLE DISCHARGE THIS P.M.
--- NOTE | 2019-12-18 10:15 | NUR ---
PATIENT TAKEN VIA BED TO OR FOR LAP TOSHA POSSIBLE OPEN TOSHA. Addendum: 12/18/19 at 1021 by ZAHEER WHITLOCK RN WRONG PT.
[2019-12-18 11:32] VITALS: BP 115/71
--- NOTE | 2019-12-18 13:10 | NUR ---
DR. ARGUELLES CALLED AND PATIENT UPDATE GIVEN. DISCHARGE ORDER GIVEN BY TELEPHONE AND DR. BOWLES NOTIFIED OF ORDER.
--- NOTE | 2019-12-18 13:15 | NUR ---
DR. BOWLES UPDATED ON PATIENT STATUS AND WAS MADE AWARE OF PATIENT TOLERATING DIET, BREAKFAST AND LUNCH. DR. BOWLES CAME TO UNIT FOR DISCHARGE ORDERS AND ANTIBIOTIC TO BE TAKEN AT HOME.
--- NOTE | 2019-12-18 13:50 | NUR ---
DISCHARGE INSTRUCTIONS GIVEN AND PATIENT VERBALIZED UNDERSTANDING INSTRUCTIONS. SCRIPT ISSUED AND INSTRUCTED ON DOSAGE AND FREQUENCY OF NEW MEDICATION AND PREVIOUS HOME MEDS TO CONTINUE. VERBALIZED UNDERSTANDING INSTRUCTIONS GIVEN.
--- NOTE | 2019-12-18 14:15 | NUR ---
PIV REMOVED AND IV SITE WNL. IV REMOVED FOR DISCHARGE.
--- NOTE | 2019-12-18 14:50 | NUR ---
PATIENT WAS TAKEN VIA WHEELCHAIR TO FAMILY VEHICLE AND WAS TO HER IN STABLE CONDITION.
== END 2019-12-18 14:50 | disposition home or self-care (01) | DRG 394 ==
LOC: EDH 20:53 → EDHIP 12-16 01:55 → WSH 12-16 07:45
PROVIDERS: ADMIT Hospitalist; ATTEND Hospitalist
PROC: 0DBB8ZX Excision of Ileum, Via Natural or Artificial Opening Endoscopic, Diagnostic (ICD-10-PCS; principal; 2019-12-17)
PROC: 0DBE8ZX Excision of Large Intestine, Via Natural or Artificial Opening Endoscopic, Diagnostic (ICD-10-PCS; 2019-12-17)
DX: K64.0 First degree hemorrhoids (principal); E87.1 Hypo-osmolality and hyponatremia; N39.0 Urinary tract infection, site not specified; E87.6 Hypokalemia; D72.829 Elevated white blood cell count, unspecified; G89.29 Other chronic pain; N83.201 Unspecified ovarian cyst, right side; G43.909 Migraine, unspecified, not intractable, without status migrainosus; B95.1 Streptococcus, group B, as the cause of diseases classified elsewhere; Z20.828 Contact with and (suspected) exposure to other viral communicable diseases; R31.29 Other microscopic hematuria; K57.30 Diverticulosis of large intestine without perforation or abscess without bleeding; Z86.19 Personal history of other infectious and parasitic diseases; Z91.041 Radiographic dye allergy status; Z82.3 Family history of stroke; Z83.3 Family history of diabetes mellitus; Z82.49 Family history of ischemic heart disease and other diseases of the circulatory system
CPT/HCPCS: 36415; 45380; 74178; 76770; 80048; 80053; 80305; 81001; 81025; 82784; 82785; 83516; 83605; 83690; 85025; 85610; 86038; 86160; 86162; 86215; 86235; 86255; 86431; 86757; 87040; 87077; 87088; 87186; 87426; 87804; 87880; A4606; G0378; J0696; J1885; J2270; J2405; J2704; J3490; J7030; J7040; Q9967

== ENCOUNTER 2019-12-20 06:08 | Emergency (ER) | payer OTHER ==
[~2019-12-20 06:08] MED LIST changes: +DICY20 PO; +GABA300S PO
[2019-12-20] MEDS ORDERED: KETOROLAC TROMETHAMINE 60 MG/2 ML VIAL ONE (08:47)
== END 2019-12-20 09:16 | disposition home or self-care (01) ==
LOC: EDH 06:08
DX: S92.352A Displaced fracture of fifth metatarsal bone, left foot, initial encounter for closed fracture (principal); G89.29 Other chronic pain; R10.9 Unspecified abdominal pain; Z91.041 Radiographic dye allergy status; Z79.899 Other long term (current) drug therapy; Z98.890 Other specified postprocedural states; X58.XXXA Exposure to other specified factors, initial encounter; Y93.01 Activity, walking, marching and hiking; Y92.89 Other specified places as the place of occurrence of the external cause; Y99.8 Other external cause status
CPT/HCPCS: 29515; 73630; 96372; 99283; J1885

== ENCOUNTER 2020-05-18 05:57 | Emergency (ER) | payer OTHER ==
[~2020-05-18 05:57] MED LIST changes: -DICY20 PO; -DICY20TA11 PO; +DICY20TA2 PO; +DICY20TA3 PO
[2020-05-18] MEDS ORDERED: DiphenhydrAMINE HCL 50 MG/ML VIAL ONE (06:25)
[2020-05-18] MEDS ORDERED: PROCHLORPERAZINE 10MG/2ML INJ ONE (06:26)
[2020-05-18] MEDS ORDERED: KETOROLAC 15MG/ML VIAL (15MG/ML) ONE (06:26)
[2020-05-18] MEDS ORDERED: 0.9%NACL 50ML 50 ML IV ONE (06:26)
[2020-05-18 06:36] LABS: BASOPHILS % (AUTO) 1.2 % (0.0-5.0); HEMATOCRIT 38.4 % (36-48); LYMPHOCYTES % (AUTO) 37.2 % (21.0-51.0); MEAN CORPUSCULAR HGB CONC 33.9 g/dL (32.0-36.0); MEAN CORPUSCULAR VOLUME 79.7 fL (79-99); MONOCYTES % (AUTO) 5.5 % (3.0-13.0); NEUTROPHILS % (AUTO) 50.8 % (40.0-77.0); PLATELET COUNT (AUTO) 380 K/uL (130-400); RED BLOOD CELL COUNT(AUTO) 4.82 MIL/uL (4.00-5.50); RED CELL DISTRIBUTION WIDTH 14.5 % (11.0-15.5); WHITE BLOOD COUNT (AUTO) 6.4 K/uL (4.8-10.8)
[2020-05-18 06:46] LABS: POTASSIUM 3.2 mmol/L (3.5-5.1)
[2020-05-18 06:50] LABS: BILIRUBIN,TOTAL 0.2 mg/dL (0.2-1.0)
[2020-05-18] MEDS ORDERED: KCL 20 MEQ ERTAB PO ONE (07:38)
[2020-06-13] MEDS ORDERED: OMEP40CA21 PO (20:47)
== END 2020-05-18 07:49 | disposition home or self-care (01) ==
LOC: EDH 05:57
DX: G43.109 Migraine with aura, not intractable, without status migrainosus (principal); E87.6 Hypokalemia; G89.29 Other chronic pain; Z98.890 Other specified postprocedural states; Z91.041 Radiographic dye allergy status
CPT/HCPCS: 36415; 80053; 85025; 96374; 96375; 99284; J0780; J1200; J1885

== ENCOUNTER 2020-05-19 16:02 | Emergency (ER) | payer OTHER ==
[~2020-05-19 16:02] MED LIST changes: +DICY20TA11 PO; -DICY20TA3 PO
[2020-05-19] MEDS ORDERED: METOCLOPRAMIDE 10 MG/2 ML VIAL ONE (16:41)
[2020-05-19] MEDS ORDERED: ACETAMINOPHEN EXTRA STRENGTH 500 MG TABLET ONE (16:42)
[2020-05-19] MEDS ORDERED: DiphenhydrAMINE HCL 50 MG/ML VIAL ONE (16:42)
[2020-05-19] MEDS ORDERED: DEXAMETHASONE SOD PHOSPHATE 10MG/ML 1ML VIAL ONE (17:03)
[2020-05-19] MEDS ORDERED: ORPHENADRINE CITRATE 30 MG/ML ML ONE (17:04)
[2020-05-19] MEDS ORDERED: LIDOCAINE 5% TOPICAL PATCH TP ONE (17:42)
== END 2020-05-19 19:01 | disposition home or self-care (01) ==
LOC: EDH 16:02
DX: M62.838 Other muscle spasm (principal); G43.909 Migraine, unspecified, not intractable, without status migrainosus; M54.2 Cervicalgia; R11.0 Nausea; Z91.040 Latex allergy status; Z87.891 Personal history of nicotine dependence; Z98.890 Other specified postprocedural states
CPT/HCPCS: 70450; 72125; 96372 ×2; 99285; J1100; J1200; J2360; J2765

== ENCOUNTER 2020-05-20 03:07 | Emergency (ER) | payer OTHER ==
[~2020-05-20 03:07] MED LIST changes: -DICY20TA11 PO; +DICY20TA3 PO
[2020-05-20] MEDS ORDERED: 0.9%NACL 1000ML 1,000 ML IV ONE (03:08)
[2020-05-20] MEDS ORDERED: DiphenhydrAMINE HCL 50 MG/ML VIAL ONE (03:46)
[2020-05-20] MEDS ORDERED: PROCHLORPERAZINE 10MG/2ML INJ ONE (03:46)
[2020-05-20] MEDS ORDERED: KETOROLAC 30MG VIAL (30MG/ML) ONE (03:46)
[2020-05-20 04:01] LABS: BASOPHILS % (AUTO) 0.2 % (0.0-5.0); HEMATOCRIT 39.7 % (36-48); LYMPHOCYTES % (AUTO) 10.9 % (21.0-51.0); MEAN CORPUSCULAR HEMOGLOBIN 27.5 pg (27.0-33.0); MEAN CORPUSCULAR HGB CONC 34.3 g/dL (32.0-36.0); MEAN CORPUSCULAR VOLUME 80.2 fL (79-99); MONOCYTES % (AUTO) 0.9 % (3.0-13.0); NEUTROPHILS % (AUTO) 87.7 % (40.0-77.0); PLATELET COUNT (AUTO) 395 K/uL (130-400); RED BLOOD CELL COUNT(AUTO) 4.95 MIL/uL (4.00-5.50); RED CELL DISTRIBUTION WIDTH 14.3 % (11.0-15.5); WHITE BLOOD COUNT (AUTO) 10.3 K/uL (4.8-10.8)
[2020-05-20 04:09] LABS: POTASSIUM 3.6 mmol/L (3.5-5.1)
[2020-05-20] MEDS ORDERED: ONDANSETRON 4MG INJ ONE (04:31)
[2020-05-20] MEDS ORDERED: MORPHINE 4 MG SYG ONE ×2 (04:31→06:21)
[2020-06-13] MEDS ORDERED: OMEP40CA21 PO (20:47)
== END 2020-05-20 06:55 | disposition home or self-care (01) ==
LOC: EDH 03:07
DX: G43.909 Migraine, unspecified, not intractable, without status migrainosus (principal); G89.29 Other chronic pain; M54.2 Cervicalgia; R10.9 Unspecified abdominal pain; Z91.041 Radiographic dye allergy status; Z98.890 Other specified postprocedural states
CPT/HCPCS: 36415; 80048; 85025; 96361; 96374; 96375; 96376; 99284; J0780; J1200; J1885; J2270 ×2; J2405; J7030

== ENCOUNTER 2020-06-12 23:19 | Inpatient (IN) | payer OTHER ==
[~2020-06-12] VITALS: Ht 157.5 cm; Wt 77.7 kg
[~2020-06-12 23:19] MED LIST changes: +DICY20TA11 PO; -DICY20TA3 PO
[2020-06-13] MEDS ORDERED: IBUPROFEN 400 MG TABLET ONE (00:53)
[2020-06-13] MEDS ORDERED: LACTATED RINGERS 1000ML 1,000 ML IV ONE (01:07)
[2020-06-13 01:11] LABS: BASOPHILS % (AUTO) 0.5 % (0.0-5.0); HEMATOCRIT 33.9 % (36-48); MEAN CORPUSCULAR HEMOGLOBIN 26.5 pg (27.0-33.0); MEAN CORPUSCULAR HGB CONC 33.3 g/dL (32.0-36.0); MEAN CORPUSCULAR VOLUME 79.6 fL (79-99); MONOCYTES % (AUTO) 7.4 % (3.0-13.0); NEUTROPHILS % (AUTO) 73.8 % (40.0-77.0); PLATELET COUNT (AUTO) 330 K/uL (130-400); RED BLOOD CELL COUNT(AUTO) 4.26 MIL/uL (4.00-5.50); RED CELL DISTRIBUTION WIDTH 14.2 % (11.0-15.5); WHITE BLOOD COUNT (AUTO) 10.6 K/uL (4.8-10.8)
[2020-06-13 01:15] LABS: INR 0.96 (0.85-1.15); PROTHROMBIN TIME 10.5 SEC (9.6-11.6)
[2020-06-13 01:16] LABS: CARBON DIOXIDE 26 mmol/L (21-32); CHLORIDE 103 mmol/L (101-111); GLOMERULAR FILTR. RATE CALC 67 mL/min (>60); GLUCOSE,RANDOM 136 mg/dL (70-105); PARTIAL THROMBOPLASTIN TIME 25.6 SEC (26.3-35.5); POTASSIUM 3.4 mmol/L (3.5-5.1); SODIUM SERUM 138 mmol/L (136-145); UREA NITROGEN, BLOOD 8 mg/dL (7-18)
[2020-06-13] MEDS ORDERED: DiphenhydrAMINE HCL 50 MG/ML VIAL ONE (01:16)
[2020-06-13] MEDS ORDERED: MORPHINE SULFATE 4 MG/1ML SYG ONE ×3 (01:16→19:44)
[2020-06-13] MEDS ORDERED: ONDANSETRON HCL 4 MG/2 ML VIAL ONE (01:16)
[2020-06-13] MEDS ORDERED: DIATR MEGLU/DIATRIZOATE SODIUM 30 ML BOTTLE ONE (01:23)
[2020-06-13 01:25] LABS: B-TYPE NATRIURETIC PEPTIDE < 5 pg/mL (0-100)
[2020-06-13 01:28] LABS: ALANINE AMINOTRANSFERASE 42 U/L (12-78); ALBUMIN 3.6 g/dL (3.5-5.0); ASPARTATE AMINOTRANSFERASE 20 U/L (10-37); BILIRUBIN,TOTAL 0.4 mg/dL (0.2-1.0); CREATINE KINASE, TOTAL 72 U/L (21-232); HCG,QUANTITATIVE 0 mIU/mL (0-5); TOTAL PROTEIN, SERUM 7.3 g/dL (6.0-8.3)
[2020-06-13 01:30] LABS: LIPASE < 50 U/L (114-286)
[2020-06-13 01:46] LABS: RAPID GROUP A STREP NEGATIVE (NEGATIVE)
[2020-06-13 03:35] LABS: APPEARANCE,URINE Cloudy (CLEAR); BILIRUBIN,URINE Negative (NEGATIVE); COLOR,URINE Red (YELLOW); GLUCOSE, URINE (UA) Negative (NEGATIVE); KETONES,URINE Negative (NEGATIVE); LEUKOCYTE ESTERASE ,URINE Small (NEGATIVE); NITRATE,URINE Negative (NEGATIVE); OCCULT BLOOD,URINE Large (NEGATIVE); PROTEIN,URINE POS 1+ mg/dL (NEGATIVE)
[2020-06-13 03:47] LABS: BACTERIA,URINE Few /HPF (None Seen); RBC,URINE TNTC /HPF (0-1)
[2020-06-13] MEDS ORDERED: LACTULOSE 20 GM/30 ML UDCUP PO PRN (07:45)
[2020-06-13] MEDS ORDERED: ONDANSETRON HCL 4 MG/2 ML VIAL IV PRN (07:45)
[2020-06-13] MEDS ORDERED: ACETAMINOPHEN-CODEINE 300/30MG TAB PO PRN (07:45)
[2020-06-13] MEDS ORDERED: GUAIFENESIN-DM 200/20 MG 10 ML PO PRN (07:45)
[2020-06-13] MEDS ORDERED: MORPHINE SULFATE 4 MG/1ML SYG IV PRN (07:45)
[2020-06-13] MEDS ORDERED: ACETAMINOPHEN 325 MG TAB PO PRN (07:45)
[2020-06-13] MEDS ORDERED: CEFTRIAXONE SODIUM 1 GM IV SCH (07:45)
[2020-06-13] MEDS ORDERED: ENOXAPARIN SODIUM 40 MG/0.4 ML SYRINGE SQ ONE (08:37)
[2020-06-13] MEDS ORDERED: CEFTRIAXONE SODIUM 1 GM ONE (08:37)
[2020-06-13] MEDS ORDERED: FAMOTIDINE/PF 20 MG/2 ML VIAL IV ONE (08:38)
[2020-06-13] MEDS: ENOXAPARIN SODIUM 40 MG/0.4 ML SYRINGE SQ SCH (09:00)
[2020-06-13] MEDS: FAMOTIDINE/PF 20 MG/2 ML VIAL IV SCH ×2 (09:00→20:04)
[2020-06-13] MEDS ORDERED: ACETAMINOPHEN-CODEINE 300/30MG TAB ONE (10:56)
[2020-06-13] MEDS: COLCHICINE 0.6 MG TABLET PO SCH ×2 (13:03→20:04)
[2020-06-13] MEDS ORDERED: POTASSIUM CHLORIDE 10% ELIXIR 20 MEQ/15 ML UDCUP PO PRN (14:15)
[2020-06-13] MEDS ORDERED: LIDOCAINE HCL-MPF 1% 2ML VIAL IV PRN (14:15)
[2020-06-13] MEDS ORDERED: POTASSIUM CHLORIDE 20MEQ/100ML 100 ML IV PRN (14:15)
[2020-06-13] MEDS ORDERED: KETOROLAC TROMETHAMINE 15MG/ML ONE (15:04)
[2020-06-13 20:04] VITALS: BP 118/41
[2020-06-13] MEDS: POTASSIUM CHLORIDE 20 MEQ ERTAB PO PRN ×2 (20:04→22:30)
[2020-06-13] MEDS ORDERED: GABA300C PO (20:47)
[2020-06-13] MEDS ORDERED: OMEP40CA13 PO (20:47)
[2020-06-13] MEDS ORDERED: FIORIT PO (20:47)
[2020-06-13] MEDS: KETOROLAC TROMETHAMINE 15MG/ML IV PRN (22:30)
[2020-06-13 23:58] VITALS: BP 99/56
[2020-06-14 03:53] VITALS: BP 100/58
[2020-06-14 07:00] VITALS: BP 105/55
[2020-06-14] MEDS: KETOROLAC TROMETHAMINE 15MG/ML IV PRN ×3 (08:04→23:31)
[2020-06-14] MEDS: FAMOTIDINE/PF 20 MG/2 ML VIAL IV SCH ×2 (09:46→20:26)
[2020-06-14] MEDS: COLCHICINE 0.6 MG TABLET PO SCH ×2 (09:46→20:26)
[2020-06-14] MEDS: CEFTRIAXONE SODIUM 1 GM IV SCH (09:46)
[2020-06-14] MEDS: ENOXAPARIN SODIUM 40 MG/0.4 ML SYRINGE SQ SCH (09:51)
[2020-06-14 11:30] VITALS: BP 105/40
[2020-06-14] MEDS ORDERED: COLC0.6T73 PO (14:22)
[2020-06-14 16:00] VITALS: BP 104/30
[2020-06-14 19:41] VITALS: BP 118/53
[2020-06-14 23:58] VITALS: BP 111/61
[2020-06-15 03:51] VITALS: BP 105/53
[2020-06-15 05:34] LABS: BASOPHILS % (AUTO) 0.8 % (0.0-5.0); HEMATOCRIT 35.6 % (36-48); MEAN CORPUSCULAR HEMOGLOBIN 26.7 pg (27.0-33.0); MEAN CORPUSCULAR HGB CONC 32.6 g/dL (32.0-36.0); MEAN CORPUSCULAR VOLUME 81.8 fL (79-99); MONOCYTES % (AUTO) 8.7 % (3.0-13.0); NEUTROPHILS % (AUTO) 40.2 % (40.0-77.0); PLATELET COUNT (AUTO) 357 K/uL (130-400); RED BLOOD CELL COUNT(AUTO) 4.35 MIL/uL (4.00-5.50); RED CELL DISTRIBUTION WIDTH 14.1 % (11.0-15.5)
[2020-06-15 05:57] LABS: ALBUMIN 3.2 g/dL (3.5-5.0); BILIRUBIN,TOTAL 0.2 mg/dL (0.2-1.0); CREATININE 0.9 mg/dL (0.5-1.5); CRP QUANTITATIVE 35.2 mg/L (0.00-9.0); POTASSIUM 3.7 mmol/L (3.5-5.1)
[2020-06-15 08:00] VITALS: BP 115/59
[2020-06-15] MEDS: FAMOTIDINE/PF 20 MG/2 ML VIAL IV SCH (09:47)
[2020-06-15] MEDS: CEFTRIAXONE SODIUM 1 GM IV SCH (09:47)
[2020-06-15] MEDS: ENOXAPARIN SODIUM 40 MG/0.4 ML SYRINGE SQ SCH (09:48)
[2020-06-15] MEDS: COLCHICINE 0.6 MG TABLET PO SCH (09:48)
[2020-06-15 11:57] VITALS: BP 119/66
== END 2020-06-15 13:58 | disposition home or self-care (01) | DRG 690 ==
LOC: EDH 23:19 → EDHIP 06-13 07:37 → 3CH 06-13 19:38
PROVIDERS: ADMIT Hospitalist; ATTEND Hospitalist
DX: N39.0 Urinary tract infection, site not specified (principal); K21.9 Gastro-esophageal reflux disease without esophagitis; G43.909 Migraine, unspecified, not intractable, without status migrainosus; Z82.3 Family history of stroke; Z83.3 Family history of diabetes mellitus; Z82.49 Family history of ischemic heart disease and other diseases of the circulatory system; Z20.822 Contact with and (suspected) exposure to COVID-19
CPT/HCPCS: 36415; 74176; 80053; 81001; 82550; 83605; 83690; 83880; 84132; 84145; 84484; 84702; 85025; 85610; 85730; 86140; 87040; 87088; 87426; 87804; 87880; 93005; G0378; J0696; J1200; J1650; J1885; J2270; J2405; J3490; J7120; Q9963; U0003

== ENCOUNTER 2020-11-02 00:37 | Inpatient (IN) | payer OTHER ==
[~2020-11-02] VITALS: Ht 157.5 cm; Wt 78.8 kg
[~2020-11-02 00:37] MED LIST changes: -BIOT5000 PO; -DICY20TA11 PO; -DICY20TA2 PO; -GABA300S PO; -PANT40TA55 PO; -SUMA25TA9 PO; -VITAMIN C
[2020-11-02 00:39] VITALS: BP 142/96
[2020-11-02 01:18] LABS: APPEARANCE,URINE Turbid (CLEAR); BILIRUBIN,URINE Negative (NEGATIVE); COLOR,URINE Yellow (YELLOW); GLUCOSE, URINE (UA) Negative (NEGATIVE); KETONES,URINE Negative (NEGATIVE); LEUKOCYTE ESTERASE ,URINE Moderate (NEGATIVE); NITRATE,URINE Negative (NEGATIVE); OCCULT BLOOD,URINE Moderate (NEGATIVE); PROTEIN,URINE Trace mg/dL (NEGATIVE)
[2020-11-02] MEDS ORDERED: IBUP-2070 PO (01:27)
[2020-11-02 01:46] LABS: BACTERIA,URINE Many /HPF (None Seen); SQUAMOUS EPITHELIAL CELL,UR Many /HPF (0-2)
[2020-11-02] MEDS ORDERED: CEFTRIAXONE 1G VIAL ONE (02:43)
[2020-11-02] MEDS ORDERED: MORPHINE 4 MG SYG ONE (02:44)
[2020-11-02] MEDS ORDERED: CEFTRIAXONE 1G VIAL IVP ONE (03:00)
[2020-11-02] MEDS ORDERED: MORPHINE 4 MG SYG IV ONE (03:00)
[2020-11-02 03:50] LABS: BASOPHILS % (AUTO) 0.4 % (0.0-5.0); EOSINOPHILS % (AUTO) 1.1 % (0.0-8.0); HEMATOCRIT 37.9 % (36-48); LYMPHOCYTES % (AUTO) 15.2 % (21.0-51.0); MEAN CORPUSCULAR HGB CONC 34.6 g/dL (32.0-36.0); PLATELET COUNT (AUTO) 326 K/uL (130-400); RED BLOOD CELL COUNT(AUTO) 4.68 MIL/uL (4.00-5.50); RED CELL DISTRIBUTION WIDTH 13.6 % (11.0-15.5); WHITE BLOOD COUNT (AUTO) 13.6 K/uL (4.8-10.8)
[2020-11-02 03:58] LABS: CARBON DIOXIDE 24 mmol/L (21-32); CHLORIDE 101 mmol/L (101-111); GLOMERULAR FILTR. RATE CALC 67 mL/min (>60); GLUCOSE,RANDOM 112 mg/dL (70-105); POTASSIUM 3.5 mmol/L (3.5-5.1); SODIUM SERUM 138 mmol/L (136-145); UREA NITROGEN, BLOOD 15 mg/dL (7-18)
[2020-11-02 04:03] LABS: ALANINE AMINOTRANSFERASE 47 U/L (12-78); ALBUMIN 3.8 g/dL (3.5-5.0); ASPARTATE AMINOTRANSFERASE 34 U/L (10-37); BILIRUBIN,TOTAL 0.5 mg/dL (0.2-1.0); CREATINE KINASE, TOTAL 78 U/L (21-232); TOTAL PROTEIN, SERUM 8.2 g/dL (6.0-8.3)
[2020-11-02 04:08] LABS: LIPASE < 50 U/L (114-286)
[2020-11-02] MEDS ORDERED: KETOROLAC 30MG VIAL (30MG/ML) ONE (04:14)
[2020-11-02] MEDS ORDERED: KETOROLAC 30MG VIAL (30MG/ML) IV ONE (04:30)
[2020-11-02 04:53] LABS: ERYTHROCYTE SEDIMENTATION RATE 15 MM/HR (0-20)
[2020-11-02 06:11] VITALS: BP 136/70
[2020-11-02 08:00] VITALS: BP 130/82
[2020-11-02] MEDS ORDERED: MORPHINE 2 MG SYG ONE (10:33)
[2020-11-02 11:59] VITALS: BP 116/75
[2020-11-02] MEDS ORDERED: KETOROLAC 15MG/ML VIAL (15MG/ML) ONE (12:10)
[2020-11-02] MEDS: COLCHICINE 0.6 MG TABLET PO SCH ×2 (12:14→21:15)
[2020-11-02] MEDS ORDERED: LACTULOSE 20 GM/30 ML UDCUP PO PRN (12:30)
[2020-11-02] MEDS ORDERED: NITROGLYCERIN 0.4 MG SL TAB SL PRN (12:30)
[2020-11-02] MEDS ORDERED: HYDROCODONE/ACETAMINOPHEN 5/325 MG TAB PO PRN (12:30)
[2020-11-02] MEDS ORDERED: ACETAMINOPHEN 325 MG TAB PO PRN (12:30)
[2020-11-02] MEDS ORDERED: ONDANSETRON 4MG INJ IV PRN (12:30)
[2020-11-02] MEDS ORDERED: CEFTRIAXONE 1G VIAL IV SCH (12:30)
[2020-11-02] MEDS: 0.9%NACL 1000ML 1,000 ML IV SCH (12:41)
[2020-11-02] MEDS: KETOROLAC 15MG/ML VIAL (15MG/ML) IV PRN (17:41)
[2020-11-02 17:50] VITALS: BP 136/79
[2020-11-02 20:12] VITALS: BP 129/76
[2020-11-02] MEDS: CEFTRIAXONE 1G VIAL IV SCH (21:15)
[2020-11-02] MEDS: FAMOTIDINE 20MG VIAL IV SCH (21:15)
[2020-11-02] MEDS: MORPHINE 2 MG SYG IVP PRN (21:27)
[2020-11-02 22:34] LABS: AMPHET/METH SCREEN,URINE NEGATIVE (NEGATIVE); BARBITURATE SCREEN, URINE POSITIVE (NEGATIVE); BENZODIAZEPINES SCREEN,URINE NEGATIVE (NEGATIVE); CANNABINOID SCREEN,URINE NEGATIVE (NEGATIVE); COCAINE SCREEN,URINE NEGATIVE (NEGATIVE); OPIATE SCREEN,URINE NEGATIVE (NEGATIVE); PHENCYCLIDINE SCREEN,URINE NEGATIVE (NEGATIVE)
[2020-11-03 00:12] VITALS: BP 114/62
[2020-11-03] MEDS: KETOROLAC 15MG/ML VIAL (15MG/ML) IV PRN ×3 (02:17→19:04)
[2020-11-03 04:16] VITALS: BP 102/49
[2020-11-03] MEDS: 0.9%NACL 1000ML 1,000 ML IV SCH (05:22)
[2020-11-03 05:26] LABS: BASOPHILS % (AUTO) 0.8 % (0.0-5.0); EOSINOPHILS % (AUTO) 6.5 % (0.0-8.0); HEMATOCRIT 37.1 % (36-48); LYMPHOCYTES % (AUTO) 46.2 % (21.0-51.0); MEAN CORPUSCULAR HEMOGLOBIN 28.1 pg (27.0-33.0); MEAN CORPUSCULAR HGB CONC 33.2 g/dL (32.0-36.0); MEAN CORPUSCULAR VOLUME 84.9 fL (79-99); MONOCYTES % (AUTO) 8.7 % (3.0-13.0); NEUTROPHILS % (AUTO) 37.6 % (40.0-77.0); PLATELET COUNT (AUTO) 319 K/uL (130-400); RED BLOOD CELL COUNT(AUTO) 4.37 MIL/uL (4.00-5.50); RED CELL DISTRIBUTION WIDTH 13.8 % (11.0-15.5); WHITE BLOOD COUNT (AUTO) 6.1 K/uL (4.8-10.8)
[2020-11-03 05:48] LABS: ALBUMIN 3.2 g/dL (3.5-5.0); BILIRUBIN,TOTAL 0.3 mg/dL (0.2-1.0); POTASSIUM 3.5 mmol/L (3.5-5.1); TOTAL PROTEIN, SERUM 7.1 g/dL (6.0-8.3)
[2020-11-03 08:03] VITALS: BP 120/59
[2020-11-03] MEDS: MORPHINE 2 MG SYG IVP PRN (08:54)
[2020-11-03] MEDS: FAMOTIDINE 20MG VIAL IV SCH ×2 (09:09→20:57)
[2020-11-03] MEDS: COLCHICINE 0.6 MG TABLET PO SCH ×2 (09:09→20:55)
[2020-11-03] MEDS: ENOXAPARIN SODIUM 30 MG/0.3 ML SQ SCH (09:10)
[2020-11-03] MEDS: SOLU-MEDROL 40MG VIAL IVP SCH (11:51)
[2020-11-03 11:52] VITALS: BP 119/68
[2020-11-03 15:04] LABS: HEMOGLOBIN A1C 5.5 % (4.0-6.0)
[2020-11-03] MEDS: INSULIN HUMULIN R 100 UNIT/ML 3ML SQ SCH ×2 (16:17→20:43)
[2020-11-03 16:40] VITALS: BP 124/80
[2020-11-03] MEDS ORDERED: SUMATRIPTAN SUCCINATE 25 MG TABLET PO PRN (19:30)
[2020-11-03 20:08] VITALS: BP 122/59
[2020-11-03] MEDS: CEFTRIAXONE 1G VIAL IV SCH (20:57)
[2020-11-04 00:12] VITALS: BP 132/63
[2020-11-04] MEDS: 0.9%NACL 1000ML 1,000 ML IV SCH (02:53)
[2020-11-04 04:16] VITALS: BP 109/57
[2020-11-04 05:50] LABS: BASOPHILS % (AUTO) 0.4 % (0.0-5.0); EOSINOPHILS % (AUTO) 0.4 % (0.0-8.0); HEMATOCRIT 36.7 % (36-48); LYMPHOCYTES % (AUTO) 18.7 % (21.0-51.0); MEAN CORPUSCULAR HEMOGLOBIN 27.6 pg (27.0-33.0); MEAN CORPUSCULAR HGB CONC 33.5 g/dL (32.0-36.0); MEAN CORPUSCULAR VOLUME 82.3 fL (79-99); MONOCYTES % (AUTO) 5.7 % (3.0-13.0); NEUTROPHILS % (AUTO) 74.3 % (40.0-77.0); PLATELET COUNT (AUTO) 355 K/uL (130-400); RED BLOOD CELL COUNT(AUTO) 4.46 MIL/uL (4.00-5.50); RED CELL DISTRIBUTION WIDTH 13.4 % (11.0-15.5); WHITE BLOOD COUNT (AUTO) 14.2 K/uL (4.8-10.8)
[2020-11-04 06:11] LABS: ALBUMIN 3.2 g/dL (3.5-5.0); BILIRUBIN,TOTAL 0.2 mg/dL (0.2-1.0); CREATININE 0.9 mg/dL (0.5-1.5); POTASSIUM 3.9 mmol/L (3.5-5.1); TOTAL PROTEIN, SERUM 7.3 g/dL (6.0-8.3)
[2020-11-04] MEDS: INSULIN HUMULIN R 100 UNIT/ML 3ML SQ SCH ×2 (06:44→11:15)
[2020-11-04 08:09] VITALS: BP 130/62
[2020-11-04] MEDS: SOLU-MEDROL 40MG VIAL IVP SCH (08:38)
[2020-11-04] MEDS: FAMOTIDINE 20MG VIAL IV SCH (08:39)
[2020-11-04] MEDS: ENOXAPARIN SODIUM 30 MG/0.3 ML SQ SCH (08:39)
[2020-11-04] MEDS: COLCHICINE 0.6 MG TABLET PO SCH (08:39)
[2020-11-04] MEDS ORDERED: OMEP20TA2 PO (13:14)
[2020-11-04] MEDS ORDERED: CEPH500B PO (13:15)
== END 2020-11-04 15:55 | disposition home or self-care (01) | DRG 690 ==
LOC: EDH 00:37 → EDHIP 12:07 → 4DH 18:20
PROVIDERS: ADMIT Internal Medicine; ATTEND Internal Medicine
DX: N39.0 Urinary tract infection, site not specified (principal); M04.1 Periodic fever syndromes; Z20.822 Contact with and (suspected) exposure to COVID-19; Z91.041 Radiographic dye allergy status; Z82.5 Family history of asthma and other chronic lower respiratory diseases; Z82.3 Family history of stroke; Z83.3 Family history of diabetes mellitus; Z82.49 Family history of ischemic heart disease and other diseases of the circulatory system; Z82.0 Family history of epilepsy and other diseases of the nervous system
CPT/HCPCS: 36415; 71045; 80053; 80305; 81001; 81025; 82550; 82948; 83036; 83690; 84484; 85025; 85378; 85651; 86140; 87088; 87635; 93005; 93970; G0378; J0696; J1650; J1885; J2270; J2920; J3490; J7030

== ENCOUNTER 2023-08-18 12:52 | Emergency (ER) | payer BC ==
[~2023-08-18] VITALS: Ht 157.5 cm; Wt 70.3 kg
[~2023-08-18 12:52] MED LIST changes: +CEPH500B PO; +OMEP20TA2 PO
[2023-08-18 14:31] VITALS: BP 142/92; PULSE 72; RESP 20; O2SAT 99
== END 2023-08-18 14:38 | disposition home or self-care (01) ==
LOC: EDH 12:52
DX: S93.402A Sprain of unspecified ligament of left ankle, initial encounter (principal); Z79.899 Other long term (current) drug therapy; Z88.8 Allergy status to other drugs, medicaments and biological substances; Z91.041 Radiographic dye allergy status; Z98.890 Other specified postprocedural states; W18.39XA Other fall on same level, initial encounter; Y93.89 Activity, other specified; Y92.89 Other specified places as the place of occurrence of the external cause; Y99.8 Other external cause status
CPT/HCPCS: 73600